=== PATIENT | male | born 1950 | race Caucasian/White ===

== ENCOUNTER → 2017-05-19 | Outpatient (CLI) | payer MEDICARE ==
[~2017-05-19] MED LIST: AMLO10TA2 PO; SIMV10TA2 PO; VITA100067 PO
[2017-05-19 10:13] LABS: BASO # 0.1 10^3/uL (0.0-0.2); BASO % 1.3 % (0.0-1.0); EOS # 0.4 10^3/uL (0.0-0.50); EOS % 6.6 % (0.0-3.0); IMMATURE GRANULOCYTE % 0.3 % (0-0); LYMPH % 31.9 % (24.0-44.0); MEAN CORPUSCULAR HEMOGLOBIN 33.5 pg (27.0-33.0); MEAN CORPUSCULAR HGB CONC 33.1 g/dl (32.0-36.5); MEAN CORPUSCULAR VOLUME 101.1 fl (80.0-96.0); MONO # 0.8 10^3/uL (0.0-0.8); NEUTROPHILS % 47.9 % (36.0-66.0); PLATELET COUNT, AUTOMATED 236 10^3/uL (150-450); RED CELL DISTRIBUTION WIDTH 12.1 % (11.5-14.5); WHITE BLOOD COUNT 6.2 10^3/uL (4.0-10.0)
[2017-05-19 10:37] LABS: ALBUMIN 3.9 GM/DL (3.2-5.2); ALKALINE PHOSPHATASE 32 U/L (45-117); ALT/SGPT 27 U/L (12-78); ANION GAP 9 MEQ/L (8-16); AST/SGOT 19 U/L (15-37); BILIRUBIN,TOTAL 0.8 MG/DL (0.2-1.0); BLOOD UREA NITROGEN 16 MG/DL (7-18); CALCIUM LEVEL 8.2 MG/DL (8.8-10.2); CARBON DIOXIDE LEVEL 28 MEQ/L (21-32); CHLORIDE LEVEL 103 MEQ/L (98-107); CHOLESTEROL LEVEL 215 MG/DL (<200); GLOMERULAR FILTRATION RATE > 60.0 (>49); GLUCOSE, FASTING 97 MG/DL (80-110); POTASSIUM SERUM 4.4 MEQ/L (3.5-5.1); SODIUM LEVEL 140 MEQ/L (136-145); TOTAL PROTEIN 6.5 GM/DL (6.4-8.2); TRIGLYCERIDES LEVEL 77 MG/DL (<150)
== END ==
LOC: M WUC 08:12
PROVIDERS: ATTEND Emergency Medicine
DX: E78.2 Mixed hyperlipidemia (principal); I10 Essential (primary) hypertension

== ENCOUNTER 2017-06-19 07:51 | Day surgery (SDC) | payer MEDICARE ==
[~2017-06-19] VITALS: Ht 172.7 cm; Wt 73.9 kg
[2017-06-19] MEDS ORDERED: LR 1,000 ML IV SCH ×2 (08:00→12:45)
[2017-06-19] MEDS ORDERED: ceFAZolin 2 GM/D5W 50 ML IV BAG (J0690) As Ordered ONE (09:18)
[2017-06-19] MEDS ORDERED: PROPOFOL 200 MG/20 ML VIAL As Ordered ONE ×2 (09:52→11:36)
[2017-06-19] MEDS ORDERED: MIDAZOLAM INJ 2 MG/2 ML VIAL (J2250) As Ordered ONE (09:52)
[2017-06-19] MEDS ORDERED: LIDOCAINE 2% INJ 100 MG/5 ML SDV (FOR ANES.) As Ordered ONE (09:52)
[2017-06-19] MEDS ORDERED: fentaNYL 100 MCG/2 ML INJECTION (J3010) As Ordered ONE (09:52)
[2017-06-19] MEDS ORDERED: BUPIVACAINE HCL 0.5% 30 ML VIAL As Ordered ONE (10:06)
[2017-06-19] MEDS ORDERED: NEOSPORIN GU IRRIG 20 ML VIAL As Ordered ONE (10:06)
[2017-06-19] MEDS ORDERED: BACITRACIN PWD 50,000 UNITS VIAL As Ordered ONE (10:06)
[2017-06-19] MEDS ORDERED: dexameTHASONE 4 MG/ML 1ML VIAL (J1100) As Ordered ONE (10:06)
[2017-06-19] MEDS ORDERED: LIDOCAINE 2% MDV 20 ML VIAL As Ordered ONE (10:06)
[2017-06-19] MEDS ORDERED: fentaNYL 100 MCG/2 ML INJECTION (J3010) IV PRN (12:45)
[2017-06-19] MEDS ORDERED: ONDANSETRON 4MG/2ML VIAL (J2405) IV PRN (12:45)
[2017-06-19] MEDS ORDERED: PERCOCET 5MG/325MG TAB PO PRN (12:45)
[2017-06-19] MEDS ORDERED: HYDROmorphone HCL 1 MG/ML SYRINGE (J1170) IV PRN (12:45)
--- NOTE | 2017-06-19 13:33 | REP ---
LEFT FOOT: Three views of the left foot performed in a portable fashion. Surgical defects are seen in the distal aspect of the first and fifth metatarsals fixed by a metallic screw at both locations. Surgical defect at the first proximal phalanx is fixed with a metallic surgical screw. A small screw is also seen in the head of the second metatarsal. There is a pin extending through the phalanges of the second digit, into the head of the second metatarsal. The structures are well aligned. Signed by Martell Robertson MD 06/19/2017 04:55 P
[2017-06-19 14:00] VITALS: BP 164/86
--- NOTE | 2017-06-19 18:22 | RO ---
DATE OF PROCEDURE: 06/19/2017 PREPROCEDURE DIAGNOSIS: Hallux valgus metatarsus primus varus deformity left foot, cross over second toe deformity second toe left foot, long second metatarsal left foot, Tailor's bunion deformity left foot. POSTPROCEDURE DIAGNOSIS: Hallux valgus metatarsus primus varus deformity left foot, cross over second toe deformity second toe left foot, long second metatarsal left foot, Tailor's bunion deformity left foot. PROCEDURE: 1. Tavia and Raul bunionectomy with internal screw fixation 3.0 x 22 and 3.0 x 18 left foot. 2. Proximal interphalangeal joint fusion with external wire fixation 0.045 times one left foot. 3. Shortening second metatarsal osteotomy with internal screw fixation left foot. 4. Metatarsophalangeal joint capsulotomy with extensor tendon lengthening second toe left foot. 5. Tailor's bunionectomy with distal V osteotomy, internal screw fixation 2.5 mm x 18 mm x 1 left foot. SURGEON: Dr. Arun Santos DPM PHARMACY SALESPERSON: None. ANESTHESIA: Local MAC. IRRIGATION: Dilute bacitracin, neomycin and polymyxin B solution. HEMOSTASIS: Ankle pneumatic tourniquet at 225 mmHg for 114 minutes. HARDWARE UTILIZED: Ashby Dart-Fire 3.0 x 22, 3.0 x 18, 2.5 x 14 and a 2.5 x 18 left foot. DESCRIPTION OF PROCEDURE: On 06/19/2017, this 67-year-old male was taken from his hospital room to the operating room and placed on the operating table in the supine position. Following the induction of intravenous (IV) sedation and local and regional anesthesia, the left lower extremity was prepped and draped in the usual aseptic manner. Attention was directed to the patient's left foot where the following procedure was performed: TAVIA AND RAUL OSTEOTOMY WITH INTERNAL SCREW FIXATION LEFT FOOT: Attention was directed to the patient's left foot. There was noted to be a severe bunion deformity of the left foot. At this time, an 8 cm incision was placed over the first metatarsophalangeal joint medial to the extensor tendon. The incision was deepened through the subcutaneous tissues and all coursing venous tributaries were identified, underscored, clamped, cut, ligated and electrocoagulated as necessary. A linear capsulotomy was performed in the same as the original skin incision. The capsular and periosteal structure was then dissected free in one continuous layer dorsally, medially and laterally, thus creating a capsular periosteal-type envelope. This delivered in view the hypertrophied medial eminence of the first metatarsal, which was osteotomized from distal to proximal, through and through, exiting medial to the sesamoidal groove. Attention was then directed into the first intermetatarsal space where dissection was carried down to the level of the fibular sesamoid where the conjoin tendon was sharply dissected free from the fibular sesamoid. Attention was directed to the medial surface of the first metatarsal where a V-shaped osteotomy was performed with a long plantar and short dorsal wing. Upon creation of this osteotomy, capital fragment was transposed approximately 30-40% of the width of the shaft of the first metatarsal and fixated with a 3.0 x 22 mm cannulated compression screw. Significant interphalangeal deformity was noted; therefore, dissection was carried over the level of the proximal phalanx. A pivot hole was then placed on the proximal lateral aspect of the proximal phalanx, and a wedge osteotomy was placed obliquely, exiting proximal to the interphalangeal joint along the medial condyle. A wedge measuring approximately 5 mm was removed reducing the interphalangeal deformity. Bone clamp was utilized to reduce the osteotomy where a 3.0 x 18 mm compression screw was placed across the osteotomy giving stable fixation. This screw was placed from a proximal medial to distal lateral orientation. The wound was flushed with copious amounts of dilute bacitracin, neomycin and polymyxin B solution. Capsular structures were coapted and maintained utilizing #2-0 Monocryl in a simple interrupted and horizontal mattress type fashion. Subcutaneous tissues were coapted and maintained utilizing #4-0 Monocryl in a simple interrupted type fashion. Skin incision was coapted and maintained utilizing #4-0 Prolene in a simple interrupted and horizontal mattress type fashion. Attention was then directed to the patient's second toe where the following procedure was performed: PROXIMAL INTERPHALANGEAL JOINT ARTHROPLASTY SECOND TOE WITH EXTERNAL WIRE FIXATION 0.045 TIMES ONE SECOND TOE LEFT FOOT: Attention was directed to the patient's second toe where two transverse semi-elliptical incisions were placed over the proximal interphalangeal joint and this wedge of skin was removed. The extensor tendon was visualized. It was freed from the proximal phalanx and a Z-plasty tendon lengthening was then performed on the distal margin of the extensor tendon. The medial and lateral collateral ligaments were then incised to expose the proximal interphalangeal joint. Utilizing a power saw, an osteotomy was performed to the level of the anatomical neck of the proximal phalanx from dorsal to plantar, medial to lateral, through and through. The base of the proximal phalanx had the cartilage osteotomized from dorsal to plantar, through and through. The wound was flushed with copious amounts of dilute bacitracin, neomycin and polymyxin B solution. Attention was then directed to the second metatarsal where the following procedure was performed: SHORTENING SECOND METATARSAL OSTEOTOMY WITH INTERNAL SCREW FIXATION, 2.5 X 14 mm LEFT FOOT: An incision was then placed in the second interspace measuring approximately 3 cm in length. Dissection was then carried down and the skin was retracted in a medial direction exposing the proximal interphalangeal joint where a dorsal capsulotomy was performed. Care was taken to release the contracted medial structures on the second metatarsophalangeal joint. Then, from the incision used for the second toe and the incision in the second interspace, care was taken to freely release the extensor tendon and bring it into the proximal wound. Periosteal incision was then placed over the second metatarsal and a Leilani osteotomy was performed. Upon creation of this osteotomy, the capital fragment was transposed approximately 3-4 mm proximal and 2-3 mm in a medial direction. This was fixated with a 2.5 x 14 mm compression screw. The osteotomy was noted to be stable in all three cardinal planes. The dorsal spike was then rongeured smooth and rasped with a handheld rasp. The wound was flushed with copious amounts of dilute bacitracin, neomycin and polymyxin B solution. The lateral side of the second toe was then held in a straight position and utilizing #2-0 Monocryl, the lateral capsule was wreathed to bring the toe into a straight anatomic position. K-wire was then driven through the middle and distal phalanxes and retrograded into the proximal phalanx. The toe was held in a slightly plantar flexed and lateral position and the K-wire crossed the osteotomy. The wire was then bent, cut and a protective cap was placed over the distal end. The wound was flushed with copious amounts of dilute bacitracin, neomycin and polymyxin B solution. Attention was directed towards closure where the extensor tendon was coapted and maintained with #4-0 braided nylon loop suture in a four-stranded core repair, Humphries repair. The subcutaneous tissues were coapted and maintained utilizing #4-0 Monocryl in a simple interrupted type fashion. The skin incision was coapted and maintained utilizing #4-0 Prolene in a simple interrupted and horizontal mattress type fashion over the second metatarsal and second toe. Attention was then directed to the Tailor's bunion deformity where the following procedure was performed: TAILOR'S BUNIONECTOMY WITH DISTAL V OSTEOTOMY, INTERNAL SCREW FIXATION, LEFT FOOT: Attention was directed to the patient's left foot where a lateral incision was placed over the fifth metatarsophalangeal joint. The incision was deepened through subcutaneous tissues and all coursing venous tributaries were identified, underscored, clamped, cut, ligated and electrocoagulated as necessary. This delivered into view the hypertrophied lateral eminence of the fifth metatarsal, which was osteotomized from distal to proximal, through and through. A V-shaped osteotomy was then performed in the distal metaphysis of the fifth metatarsal with a long plantar and short dorsal wing and a capital fragment was transposed 30-40% of the width of the shaft of the fifth metatarsal and fixated with a 2.5 x 18 mm cancellous compression screw. The osteotomy was noted to be stable in all three cardinal planes. The redundant cortical spike was osteotomized from dorsal to plantar, through and through and the lateral surface was rasped to a smooth contour. The wound was flushed with copious amounts of dilute bacitracin, neomycin and polymyxin B solution. Attention was directed towards closure where the capsular structure was coapted and maintained utilizing #2-0 Monocryl in a simple interrupted type fashion. The subcutaneous tissues were coapted and maintained utilizing #4-0 Monocryl in a simple interrupted type fashion. Skin incision was coapted and maintained utilizing #4-0 Prolene in a simple interrupted and horizontal mattress type fashion. Attention was then directed towards bandaging where a sterile compressive bandage was applied consisting of Adaptic, 4 x 4's, 4 x 4 splints, Rene, Kerlix and Coban. The ankle pneumatic tourniquet was rapidly deflated and instantaneous capillary filling time was noted in digits 1 through 5 of the patient's left foot. The patient having apparently tolerated the surgical procedure well was taken from the operating room (OR) to the recovery room, vital signs stable, patient afebrile, further monitoring by the anesthesia department. All surgical specimens removed during the operative procedure were sent to Pathology for gross and microscopic examination. Postoperative instructions given upon discharge.
== END 2017-06-19 14:33 | disposition home or self-care (01) ==
LOC: M SDC 07:51
PROVIDERS: ATTEND Podiatrist
DX: M21.621 Bunionette of right foot (principal); M20.42 Other hammer toe(s) (acquired), left foot; M20.41 Other hammer toe(s) (acquired), right foot; M79.672 Pain in left foot; M21.622 Bunionette of left foot; M20.11 Hallux valgus (acquired), right foot; I10 Essential (primary) hypertension; Z79.899 Other long term (current) drug therapy; E78.5 Hyperlipidemia, unspecified
CPT/HCPCS: 28110; 28270; 28285; 28296; 28298; 28308; 73630; 88300; 97116; C1713; J0690; J1100; J2250; J3010

== ENCOUNTER → 2017-10-31 | Outpatient (CLI) | payer MEDICARE ==
[2017-10-31 14:31] LABS: BASO # 0.1 10^3/uL (0.0-0.2); BASO % 1.3 % (0.0-1.0); EOS # 0.5 10^3/uL (0.0-0.50); EOS % 8.8 % (0.0-3.0); HEMATOCRIT 42.1 % (42.0-52.0); HEMOGLOBIN 14.1 g/dl (13.5-17.5); IMMATURE GRANULOCYTE % 0.2 % (0-3.0); LYMPH # 1.6 10^3/uL (1.5-4.5); MEAN CORPUSCULAR HGB CONC 33.5 g/dl (32.0-36.5); MEAN CORPUSCULAR VOLUME 98.6 fl (80.0-96.0); MONO # 0.7 10^3/uL (0.0-0.8); MONO % 12.9 % (0.0-5.0); NEUTROPHILS # 2.7 10^3/uL (1.8-7.7); NEUTROPHILS % 48.8 % (36.0-66.0); PLATELET COUNT, AUTOMATED 240 10^3/uL (150-450); RED BLOOD COUNT 4.27 10^6/uL (4.30-6.10); RED CELL DISTRIBUTION WIDTH 12.3 % (11.5-14.5); WHITE BLOOD COUNT 5.6 10^3/uL (4.0-10.0)
[2017-10-31 14:42] LABS: ALBUMIN 3.9 GM/DL (3.2-5.2); ALKALINE PHOSPHATASE 37 U/L (45-117); ALT/SGPT 28 U/L (12-78); ANION GAP 6 MEQ/L (8-16); AST/SGOT 18 U/L (7-37); BILIRUBIN,TOTAL 0.7 MG/DL (0.2-1.0); BLOOD UREA NITROGEN 22 MG/DL (7-18); CARBON DIOXIDE LEVEL 28 MEQ/L (21-32); CHLORIDE LEVEL 106 MEQ/L (98-107); CREATININE FOR GFR 0.88 MG/DL (0.70-1.30); GLOMERULAR FILTRATION RATE > 60.0 (>49); GLUCOSE, FASTING 91 MG/DL (70-100); POTASSIUM SERUM 4.5 MEQ/L (3.5-5.1); SODIUM LEVEL 140 MEQ/L (136-145); TOTAL PROTEIN 6.5 GM/DL (6.4-8.2)
== END ==
LOC: M WUC 08:34
DX: Z01.818 Encounter for other preprocedural examination (principal); M20.11 Hallux valgus (acquired), right foot
CPT/HCPCS: 80053

== ENCOUNTER 2017-11-07 07:00 | Day surgery (SDC) | payer MEDICARE ==
[~2017-11-07 07:00] MED LIST changes: -AMLO10TA2 PO; +LIDOCAINE 2% INJ 100 MG/5 ML SDV (FOR ANES.) As Ordered; +MIDAZOLAM INJ 2 MG/2 ML VIAL (J2250) As Ordered; +PROPOFOL 200 MG/20 ML VIAL As Ordered; +ROCURONIUM BROMIDE 50 MG/5 ML VIAL As Ordered; -SIMV10TA2 PO; -VITA100067 PO; +fentaNYL 100 MCG/2 ML INJECTION (J3010) As Ordered
[2017-11-07] MEDS: LR 1,000 ML IV (07:50)
[2017-11-07] MEDS: LIDOCAINE 2% MDV 20 ML VIAL As Ordered (08:33)
[2017-11-07] MEDS: BUPIVACAINE HCL 0.5% 30 ML VIAL As Ordered (08:33)
[2017-11-07] MEDS: NEOSPORIN GU IRRIG 20 ML VIAL As Ordered (08:55)
[2017-11-07] MEDS: BACITRACIN PWD 50,000 UNITS VIAL As Ordered (08:56)
[2017-11-07] MEDS ORDERED: PROPOFOL 200 MG/20 ML VIAL As Ordered ×3 (09:13→10:39)
[2017-11-07] MEDS ORDERED: ONDANSETRON 4MG/2ML VIAL (J2405) As Ordered (09:20)
[2017-11-07] MEDS: dexameTHASONE 4 MG/ML 1ML VIAL (J1100) As Ordered (10:29)
== END 2017-11-07 13:00 | disposition home or self-care (01) ==
LOC: M SDC 07:00
DX: M20.11 Hallux valgus (acquired), right foot (principal); M21.611 Bunion of right foot; M20.41 Other hammer toe(s) (acquired), right foot; I10 Essential (primary) hypertension; E78.5 Hyperlipidemia, unspecified; Z88.7 Allergy status to serum and vaccine; Z79.899 Other long term (current) drug therapy
CPT/HCPCS: 28296

== ENCOUNTER → 2017-12-22 | Outpatient (CLI) | payer MEDICARE | LOC: M RAD 12:04 | DX: M79.604 Pain in right leg (principal) | CPT/HCPCS: 93971 ==

== ENCOUNTER → 2019-09-10 | Outpatient (CLI) | payer MEDICARE ==
[~2019-09-10] MED LIST changes: +AMLO10TA5 PO; -LIDOCAINE 2% INJ 100 MG/5 ML SDV (FOR ANES.) As Ordered; -MIDAZOLAM INJ 2 MG/2 ML VIAL (J2250) As Ordered; -PROPOFOL 200 MG/20 ML VIAL As Ordered; -ROCURONIUM BROMIDE 50 MG/5 ML VIAL As Ordered; +SIMV10TA21 PO; +VITA100067 PO; -fentaNYL 100 MCG/2 ML INJECTION (J3010) As Ordered
[2019-09-10 16:35] LABS: BASO # 0.1 10^3/uL (0.0-0.2); EOS # 0.3 10^3/uL (0.0-0.5); EOS % 4.3 % (0.0-3.0); HEMATOCRIT 43.6 % (42.0-52.0); HEMOGLOBIN 13.9 g/dl (13.5-17.5); LYMPH # 1.7 10^3/uL (1.5-5.0); MEAN CORPUSCULAR HGB CONC 31.9 g/dl (32.0-36.5); MEAN CORPUSCULAR VOLUME 100.5 fl (80.0-96.0); MONO # 0.7 10^3/uL (0.0-0.8); MONO % 11.2 % (0.0-5.0); NEUTROPHILS # 3.3 10^3/uL (1.5-8.5); NEUTROPHILS % 55.3 % (36.0-66.0); PLATELET COUNT, AUTOMATED 250 10^3/uL (150-450); RED BLOOD COUNT 4.34 10^6/uL (4.30-6.10)
[2019-09-10 16:41] LABS: ALBUMIN 3.9 GM/DL (3.2-5.2); ALT/SGPT 31 U/L (12-78); BILIRUBIN,TOTAL 0.9 MG/DL (0.2-1.0); BLOOD UREA NITROGEN 16 MG/DL (7-18); CALCIUM LEVEL 8.5 MG/DL (8.8-10.2); CARBON DIOXIDE LEVEL 27 MEQ/L (21-32); CHLORIDE LEVEL 107 MEQ/L (98-107); CHOLESTEROL LEVEL 212 MG/DL (<200); CHOLESTEROL RISK RATIO 3.312 (<5); CREATININE FOR GFR 0.82 MG/DL (0.70-1.30); GLOMERULAR FILTRATION RATE > 60.0 (>49); GLUCOSE, FASTING 85 MG/DL (70-100); HDL CHOLESTEROL 64 MG/DL (>40); LDL CHOLESTEROL 131 MG/DL (<100); NON-HDL-C 148 MG/DL; POTASSIUM SERUM 4.1 MEQ/L (3.5-5.1); SODIUM LEVEL 140 MEQ/L (136-145); TOTAL PROTEIN 6.6 GM/DL (6.4-8.2); TRIGLYCERIDES LEVEL 85 MG/DL (<150)
== END ==
LOC: M WUC 11:22
PROVIDERS: ATTEND Family Medicine
DX: Z00.00 Encounter for general adult medical examination without abnormal findings (principal); E78.2 Mixed hyperlipidemia; I10 Essential (primary) hypertension

== ENCOUNTER → 2020-01-28 | Outpatient (CLI) | payer MEDICARE ==
--- NOTE | 2020-01-28 08:54 | REP ---
Chest x-ray: Two views. History: Shortness of breath. Comparison study: June 09, 2017. Findings: The lungs are well inflated and clear. Heart is not enlarged. The aorta is tortuous. Pleural angles are sharp. Pulmonary vasculature is not increased. Impression: No active disease. Electronically Signed by Carlitos Jama MD 01/28/2020 08:46 A
[2020-01-28 09:48] LABS: APPEARANCE, URINE CLEAR (CLEAR); BACTERIA, URINE AUTO NEGATIVE (NEGATIVE); BILIRUBIN, URINE AUTO NEGATIVE (NEGATIVE); BLOOD, URINE BLOOD NEGATIVE (NEGATIVE); COLOR, URINE STRAW (YELLOW); GLUCOSE, URINE (UA) AUTO NEGATIVE (NEGATIVE); KETONE, URINE AUTO NEGATIVE (NEGATIVE); LEUKOCYTE ESTERASE, URINE AUTO NEGATIVE (NEGATIVE); NITRITE, URINE AUTO NEGATIVE (NEGATIVE); PROTEIN, URINE AUTO NEGATIVE (NEGATIVE); RBC, URINE AUTO 1 /HPF (0-3); SPECIFIC GRAVITY URINE AUTO 1.014 (1.002-1.035); SQUAMOUS EPITHELIAL CELL UR AU 0 /HPF (0-6); UROBILINOGEN, URINE AUTO 0.2 mg/dL (0.0-2.0); WBC, URINE AUTO 0 /HPF (0-3)
[2020-01-28 09:53] LABS: BASO # 0.1 10^3/uL (0.0-0.2); BASO % 1.1 % (0.0-1.0); EOS # 0.3 10^3/uL (0.0-0.5); EOS % 6.1 % (0.0-3.0); HEMATOCRIT 45.5 % (42.0-52.0); HEMOGLOBIN 14.8 g/dl (13.5-17.5); LYMPH # 1.6 10^3/uL (1.5-5.0); LYMPH % 29.8 % (24.0-44.0); MEAN CORPUSCULAR HEMOGLOBIN 32.5 pg (27.0-33.0); MEAN CORPUSCULAR HGB CONC 32.5 g/dl (32.0-36.5); MONO # 0.7 10^3/uL (0.0-0.8); MONO % 12.3 % (0.0-5.0); NEUTROPHILS # 2.7 10^3/uL (1.5-8.5); NEUTROPHILS % 50.3 % (36.0-66.0); PLATELET COUNT, AUTOMATED 243 10^3/uL (150-450); RED BLOOD COUNT 4.55 10^6/uL (4.30-6.10); WHITE BLOOD COUNT 5.4 10^3/uL (4.0-10.0)
[2020-01-28 10:24] LABS: ALBUMIN 3.9 GM/DL (3.2-5.2); ALT/SGPT 27 U/L (12-78); BILIRUBIN,TOTAL 0.8 MG/DL (0.2-1.0); BLOOD UREA NITROGEN 20 MG/DL (7-18); CALCIUM LEVEL 8.9 MG/DL (8.8-10.2); CARBON DIOXIDE LEVEL 27 MEQ/L (21-32); CHLORIDE LEVEL 106 MEQ/L (98-107); CHOLESTEROL LEVEL 216 MG/DL (<200); CREATININE FOR GFR 0.99 MG/DL (0.70-1.30); FREE T4 1.21 NG/DL (0.76-1.46); GLOMERULAR FILTRATION RATE > 60.0 (>49); GLUCOSE, FASTING 88 MG/DL (70-100); HDL CHOLESTEROL 54 MG/DL (>40); LDL CHOLESTEROL 141 MG/DL (<100); NON-HDL-C 162 MG/DL; POTASSIUM SERUM 4.3 MEQ/L (3.5-5.1); SODIUM LEVEL 140 MEQ/L (136-145); TOTAL PROTEIN 6.8 GM/DL (6.4-8.2); TRIGLYCERIDES LEVEL 105 MG/DL (<150)
== END ==
LOC: M WUC 08:04
PROVIDERS: ATTEND Physician Assistant
DX: R06.02 Shortness of breath (principal); E78.5 Hyperlipidemia, unspecified; I10 Essential (primary) hypertension; Z12.5 Encounter for screening for malignant neoplasm of prostate
CPT/HCPCS: 36415; 71046; 80053; 80061; 81001; 84439; 84443; 85025; G0103

== ENCOUNTER → 2020-02-03 | Outpatient (CLI) | payer MEDICARE ==
--- NOTE | 2020-02-03 10:00 | REP ---
Clinical: Neck and shoulder pain. Technique: AP, lateral, flexion/extension, bilateral oblique and open mouth views of the cervical spine. Findings: Reversal of normal lordosis centered at C4-5 along with advanced multilevel degenerative disc osteophyte complexes. Findings include osteophytosis, endplate sclerosis, disc space narrowing, facet arthropathy and foraminal narrowing. Chronic stable anterolisthesis at the C3-4 level of approximately 5 mm noted. No obvious acute fracture / compression injury. Impression: Advanced multilevel degenerative spondylosis. Electronically Signed by Terrence Fatima MD 02/03/2020 09:53 A
--- NOTE | 2020-02-03 10:03 | REP ---
Clinical: Left shoulder pain. Technique: Internal rotation, external rotation, and Y view of the left shoulder. Findings: Subtle cortical irregularity at the acromioclavicular joint is appreciated along with mild blunting to the calcified glenoid rim. No acute fracture or dislocation. No obvious periarticular calcifications/loose bodies. Impression: Mild age-related degenerative changes. Findings appear relatively similar to 03/20/2010. Electronically Signed by Terrence Fatima MD 02/03/2020 09:55 A
== END ==
LOC: M CLY 09:11
PROVIDERS: ATTEND Physician Assistant
DX: M47.892 Other spondylosis, cervical region (principal); M19.012 Primary osteoarthritis, left shoulder; M54.2 Cervicalgia; M25.512 Pain in left shoulder

== ENCOUNTER → 2020-03-07 | Emergency (ER) | payer MEDICARE ==
[~2020-03-07] MED LIST changes: -AMLO10TA5 PO; +AMLO1TAB25 PO; +HYDROMORPHONE HCL 0.5 MG/ 0.5 ML SYRINGE (J1170 PER 1) ONE; +MORPHINE 4 MG/ML 1ML VIAL/SYRINGE (J2270) ONE; +ONDANSETRON 4MG/2ML VIAL ONE; +propofoL 200 MG/20 ML VIAL ONE
[2020-04-23 06:56] LABS: INR 1.04; PARTIAL THROMBOPLASTIN TIME 28.4 SECONDS (24.2-38.5); PROTHROMBIN TIME 13.9 SECONDS (12.5-14.3)
[2020-04-23 09:33] LABS: BASO # 0.1 10^3/uL (0.0-0.2); BASO % 0.7 % (0.0-1.0); EOS # 0.3 10^3/uL (0.0-0.5); EOS % 3.2 % (0.0-3.0); HEMATOCRIT 39.5 % (42.0-52.0); HEMOGLOBIN 13.3 g/dl (13.5-17.5); LYMPH # 1.3 10^3/uL (1.5-5.0); LYMPH % 14.1 % (24.0-44.0); MEAN CORPUSCULAR HEMOGLOBIN 32.7 pg (27.0-33.0); MEAN CORPUSCULAR HGB CONC 33.7 g/dl (32.0-36.5); MEAN CORPUSCULAR VOLUME 97.1 fl (80.0-96.0); MONO # 0.9 10^3/uL (0.0-0.8); MONO % 9.1 % (0.0-5.0); NEUTROPHILS # 6.8 10^3/uL (1.5-8.5); NEUTROPHILS % 72.5 % (36.0-66.0); PLATELET COUNT, AUTOMATED 232 10^3/uL (150-450); RED BLOOD COUNT 4.07 10^6/uL (4.30-6.10); WHITE BLOOD COUNT 9.4 10^3/uL (4.0-10.0)
--- NOTE | 2020-04-28 08:57 | REP ---
PORTABLE RIGHT SHOULDER X-RAY: SINGLE VIEW HISTORY: Post reduction. COMPARISON: No comparison imaging is available. FINDINGS: A portably obtained AP view of the right shoulder demonstrates normal alignment of the glenohumeral and acromioclavicular joints. No fracture or subluxation is apparent. Periarticular soft tissues are unremarkable. Monitoring electrode is seen. IMPRESSION: No fracture or subluxation seen. MTDD
[2020-05-21 14:47] LABS: ALBUMIN 3.7 GM/DL (3.2-5.2); ALT/SGPT 24 U/L (12-78); BILIRUBIN,DIRECT 0.1 MG/DL (0.0-0.2); BILIRUBIN,TOTAL 0.5 MG/DL (0.2-1.0); BLOOD UREA NITROGEN 19 MG/DL (7-18); CALCIUM LEVEL 8.4 MG/DL (8.8-10.2); CARBON DIOXIDE LEVEL 27 MEQ/L (21-32); CHLORIDE LEVEL 109 MEQ/L (98-107); CREATININE FOR GFR 0.98 MG/DL (0.70-1.30); GLOMERULAR FILTRATION RATE > 60.0 (>49); GLUCOSE, FASTING 121 MG/DL (70-100); POTASSIUM SERUM 3.6 MEQ/L (3.5-5.1); SODIUM LEVEL 142 MEQ/L (136-145); TOTAL PROTEIN 6.1 GM/DL (6.4-8.2)
== END | disposition home or self-care (01) ==
LOC: M ED 15:56
DX: S43.004A Unspecified dislocation of right shoulder joint, initial encounter (principal); W17.89XA Other fall from one level to another, initial encounter; Y99.0 Civilian activity done for income or pay; I10 Essential (primary) hypertension; Z79.899 Other long term (current) drug therapy; Z88.7 Allergy status to serum and vaccine
CPT/HCPCS: 23650; 70450; 72125; 73020; 73030; 73060; 80048; 80076; 85025; 85610; 85730; 86850; 86900; 86901; 96374; 96375; 96376; 99284; J1170; J2270; J2405

== ENCOUNTER → 2020-03-23 | Outpatient (CLI) | payer MEDICARE ==
[~2020-03-23] MED LIST changes: -HYDROMORPHONE HCL 0.5 MG/ 0.5 ML SYRINGE (J1170 PER 1) ONE; -MORPHINE 4 MG/ML 1ML VIAL/SYRINGE (J2270) ONE; -ONDANSETRON 4MG/2ML VIAL ONE; -propofoL 200 MG/20 ML VIAL ONE
== END ==
LOC: M LABSMTC 09:53
PROVIDERS: ATTEND Anesthesiology
DX: Z53.9 Procedure and treatment not carried out, unspecified reason (principal)

== ENCOUNTER 2020-03-28 12:36 | Day surgery (SDC) | payer MEDICARE ==
[~2020-03-28] VITALS: Ht 172.7 cm; Wt 78.0 kg
[2020-03-28] MEDS ORDERED: dexameTHASONE 10MG/1ML VIAL PRES.FREE (J1100 PER 1MG) ONE (12:37)
[2020-03-28] MEDS ORDERED: LIDOCAINE 1% MDV 20ML VIAL ONE (12:37)
[2020-03-28] MEDS ORDERED: ROPIvacaine 0.5% 30ML INJECTION (J2795 PER 1MG) ONE (12:37)
[2020-03-28] MEDS ORDERED: fentaNYL 100 MCG/2 ML INJECTION (J3010) As Ordered ONE ×3 (13:22→14:00)
[2020-03-28] MEDS ORDERED: MIDAZOLAM INJ 2MG/2ML VIAL (J2250 PER 1MG) As Ordered ONE ×2 (13:22→13:53)
[2020-03-28] MEDS ORDERED: ceFAZolin 2 GM/D5W 50 ML IV BAG (J0690 PER 500MG) As Ordered ONE (13:38)
[2020-03-28] MEDS ORDERED: propofoL 200 MG/20 ML VIAL As Ordered ONE ×2 (13:53→14:00)
[2020-03-28] MEDS ORDERED: LIDOCAINE 2% 100MG/5ML SDV (FOR ANES.) As Ordered ONE ×2 (13:53→14:04)
[2020-03-28] MEDS ORDERED: ROCURONIUM BROMIDE 50 MG/5 ML VIAL As Ordered ONE ×3 (13:53→16:37)
[2020-03-28] MEDS ORDERED: ONDANSETRON 4MG/2ML VIAL As Ordered ONE ×2 (13:53→14:53)
[2020-03-28] MEDS ORDERED: METOCLOPRAMIDE INJ 10MG/2ML VIAL (J2765 PER 1) As Ordered ONE (13:53)
[2020-03-28] MEDS ORDERED: EPINEPHrine 1MG/ML INJ 30ML MD-VIAL As Ordered ONE (13:58)
[2020-03-28] MEDS ORDERED: ceFAZolin SOD 2 GM in IV 1 EA IV ONE (14:45)
[2020-03-28] MEDS ORDERED: LR 1,000 ML IV ONE (14:45)
[2020-03-28] MEDS ORDERED: ePHEDrine SULFATE 25 MG/5 ML(5MG/ML) SYRINGE As Ordered ONE (14:53)
[2020-03-28] MEDS ORDERED: SUGAMMADEX SODIUM 500 MG/5 ML VIAL (BRIDION) As Ordered ONE (14:53)
[2020-03-28] MEDS ORDERED: MIDAZOLAM INJ 2MG/2ML VIAL (J2250 PER 1MG) IV ONE (15:00)
[2020-03-28] MEDS ORDERED: fentaNYL 100 MCG/2 ML INJECTION (J3010) IV ONE (15:00)
[2020-03-28] MEDS ORDERED: ACETAMINOPHEN 1000MG 100ML IV BTL (OFIRMEV) (J0131 PER 10MG) As Ordered ONE (15:41)
[2020-03-28] MEDS ORDERED: HYDROmorphone HCL 2 MG/ML 1ML VIAL (J1170) As Ordered ONE (17:02)
[2020-03-28] MEDS ORDERED: ONDANSETRON 4MG/2ML VIAL IV PRN (19:30)
[2020-03-28] MEDS ORDERED: oxyCODONE 5MG TAB PO PRN (19:30)
[2020-03-28] MEDS ORDERED: HYDROMORPHONE HCL 0.5 MG/ 0.5 ML SYRINGE (J1170 PER 1) IV PRN (19:30)
[2020-03-28] MEDS ORDERED: LR 1,000 ML IV SCH ×2 (19:30)
[2020-03-28] MEDS ORDERED: fentaNYL 100 MCG/2 ML INJECTION (J3010) IV PRN (19:30)
[2020-03-28] MEDS ORDERED: MORPHINE 4 MG/ML 1ML VIAL/SYRINGE (J2270) IV PRN (19:45)
[2020-03-28] MEDS ORDERED: NORCO, ANEXSIA 5/325MG TABLET (HYDROcodone/ACETAMINOPHEN) PO PRN ×2 (19:45)
[2020-03-28 20:15] VITALS: BP 159/82
--- NOTE | 2020-04-17 11:56 | RO ---
DATE OF OPERATION: 03/28/2020 PREOPERATIVE DIAGNOSES: Right shoulder massive rotator cuff tear with subscapularis tear with a meso-acromion, status post dislocation. POSTOPERATIVE DIAGNOSES: Right shoulder massive rotator cuff tear with subscapularis tear with a meso-acromion, status post dislocation. PROCEDURES: 1. Right shoulder arthroscopic massive rotator cuff tear repair. 2. Right shoulder arthroscopic subscapularis tear. 3. Right shoulder arthroscopic biceps tenotomy. SURGEON: Morris Schaffer M.D. BOOK JACKET COVER MACHINE OPERATOR: Mr. Shyam Martinez. ANESTHESIA: Right interscalene nerve block with a general endotracheal tube anesthetic. COMPLICATIONS: None. FINDINGS: This was a massive tear making it very difficult, taking an extended amount of time. It took 3 hours of surgical standing time for me to do this procedure. The rotator cuff was essentially fully torn including the supraspinatus, the infraspinatus, and the teres minor were pulled off the humerus. In addition, the biceps tendon was significantly frayed and there was an upper border of subscapularis tear that had been retracted medially to a significant degree, requiring a significant amount of dissection anteriorly to free the stump of the tendon and able to bring it back for repair. DESCRIPTION OF PROCEDURE: Antibiotics were given intravenously preoperatively. After a successful right interscalene nerve block and then general endotracheal tube anesthetic was established, he was placed in a semi-beach chair position where the SPIDER shoulder springer was utilized. Then his right shoulder area was carefully prepped and draped in the usual sterile fashion. After appropriate time-out, routine diagnostic arthroscopy was performed of the glenohumeral joint from a posterior portal revealing the findings as noted above. A complete tear of the rotator cuff was noted. The biceps tendon was significantly frayed and partially torn. The upper border of the subscapularis was clearly retracted medially. Interestingly enough, there did not appear to be a significant Bankart lesion. Working around superiorly, there was basically a bare humeral head all the way posteriorly. The biceps tenotomy was thus performed. At this point, I then placed the scope. I then spent a great deal of time trying to dissect out the upper border of the subscapularis tendon, trying to find the stump of the tendon that had been pulled back. I went along the posterior surface of the subscapularis tendon. I also went superiorly all the way to the base of the coracoid process after releasing the coracohumeral ligament and traced the coracoid process in a curved fashion, down to identify the tip. This allowed me to eventually identify and find the upper border of the subscapularis tendon that was retracted medially. The stump of the tendon was actually folded underneath the coracohumeral ligament and the coracobrachialis tendon, anteriorly. I was actually able to tease this out of the scar tissue and basically it was a mop and a frayed tendon edge. The stump of the tendon was over on the lesser tuberosity. Bleeding points were coagulated throughout the surgery with an ablator wand. I then placed the scope in the subacromial space and performed a bursectomy. It was noteworthy that there was a large meso-acromion, thus the anterior aspect of the acromion was very hypermobile, so I was very careful to not disrupt this too much. I did dissect over near the AC joint, but elected not to perform a distal clavicle excision because it might destabilize the meso-acromion complex, as well, thus I had to work on a bit of a compromised space in the subacromial space because of this. I was able to perform a bursectomy and get hemostasis adequately with the ablator wand. I then moved my visualization portal from the more posterior portal to a more posterolateral portal by using a spinal needle and a switching stick technique. A lateral cannula was established as well. I was able to move my visualization portal over into the lateral cannula to get better appreciation of the anatomy of this very large complete tear. The robust rotator cuff tendon was actually more on the articular side and retracted. There was a delaminated type tear, that is there was some rotator cuff and more of a bursal surface. A great deal of attention and time and patience was spent in trying to mobilize the robust, more articular-sided rotator cuff, focusing more on the external rotators, that is the teres minor and the infraspinatus tendon so I could hopefully improve his marked external rotation weakness by getting it reattached anatomically. I denuded the footprint of these tendons more on the posterior aspect of the humeral head and the lateral aspect. I used the ring curette and a shaver as well to make for a good bony bleeding, healing surface. I tried to mobilize as best as possible the tendons by using an elevator, the articular surface as well as the bursal surface of the rotator cuff. I went all the way over the coracohumeral ligament as I had done earlier in order to help mobilize as well the supraspinatus tendon. There was no comma tissue remaining at this point. I then focused on repairing the posterior aspect of the rotator cuff first. I used a 5.5 Bio-Corkscrew anchor, using a spinal needle to localize the trajectory of the placement of the anchor and placed it posterolaterally. Two limbs of one of the #2 FiberWire were passed in a horizontal mattress fashion and docked out anteriorly. The second suture was used as a simple stitch, as a rip-stop. I passed that in a simple fashion with a Scorpion passer and then tied it down securely. This brought the rotator cuff from posteriorly and medially back to its anatomic footprint. Thus, I placed a second anchor just more anterior to this in a similar fashion using a spinal needle to localize, used the punch, and then placed the 5.5 corkscrew suture anchor, and then again passed two limbs of one of the #2 FiberWire in a horizontal mattress fashion using the Scorpion suture passer. I then docked those ends of the suture out anteriorly. Then, I passed the other pair of sutures in a simple fashion as a rip-stop once again and secured it down to the anchor with a tier over using a [place] Slider Knot. Then, a third anchor was placed more medially and basically, it was mostly in the supraspinatus tendon. Again, a horizontal mattress inverted suture was passed with the Scorpion suture passer, followed by a simple suture as a rip-stop. I secured that back down. These three sets of horizontal mattress sutures were passed just through the very robust, true rotator cuff tendon that was on the articular surface. I took each individual limb and passed it once again through the actual superficial layer of the rotator cuff, such that when I do the lateral row of the whole complex, it would fold over itself, making a nice water-tight closure. Once I had done this individually with the Scorpion suture passer, I then focused on the lateral row fixation. The posterolateral row was placed first. I grabbed one limb from each pair of the six sutures and passed them out through the lateral cannula. I made the punch hole and then loaded the SwiveLock anchor and then advanced the SwiveLock anchor to make sure good tension on all limbs were providing a nice repair with good robust bone fixation. The limbs were cut short. I then grabbed the remaining three sutures from the three pairs of #2 FiberWire sutures, loaded them on another SwiveLock anchor more anterior and laterally. The punch was placed and then the anchor was inserted providing excellent repair of the rotator cuff. Photographs were taken to document this through the lateral cannula. I then turned my attention to the subscapularis tendon that had previously been mobilized. Through the anterior cannula that had been established for an anterior working portal, I used the MissingLINK suture passer to pass a horizontal mattress FiberTape and using a speed fix technique, I placed the anchor into the lesser tuberosity, the medial aspect of the bicipital groove, and then secured the upper border of the subscapularis tendon in this area. The sutures were cut short. The procedure was concluded at this point. Copiously irrigated the subacromial space and closed all of the arthroscopy portals, as well as the supplementary portals that were used to pass the anchors with interrupted nylon sutures. I covered the wounds with Adaptic dry sterile bulky dressing. An abductor brace was then applied while he was still under anesthesia. Then, he was awakened from general endotracheal anesthesia after having tolerated the procedure well, and then transferred to the recovery room in stable condition. There were no intraoperative complications. JULIO CESAR
== END 2020-03-28 20:18 | disposition home or self-care (01) ==
LOC: M SDC 12:36
PROVIDERS: ATTEND Orthopaedic Surgery
DX: M75.121 Complete rotator cuff tear or rupture of right shoulder, not specified as traumatic (principal); M25.511 Pain in right shoulder; I10 Essential (primary) hypertension; Z79.899 Other long term (current) drug therapy; Z88.7 Allergy status to serum and vaccine
CPT/HCPCS: 29823; 29827; 64415; C1713; J0131; J0690; J1100; J1170; J2250; J2405; J2765; J2795; J3010

== ENCOUNTER → 2021-02-21 | Outpatient (CLI) | payer MEDICARE ==
[~2021-02-21] MED LIST changes: +ASPI81TA26 PO; +D31000TA2 PO; +POTA99TA14 PO
== END ==
LOC: M LABSMTC 12:14
PROVIDERS: ATTEND Anesthesiology
DX: Z20.828 Contact with and (suspected) exposure to other viral communicable diseases (principal); Z11.59 Encounter for screening for other viral diseases

== ENCOUNTER 2021-02-26 10:55 | Day surgery (SDC) | payer MEDICARE ==
[~2021-02-26] VITALS: Ht 177.8 cm; Wt 78.0 kg
[~2021-02-26 10:55] MED LIST changes: +NS 1,000 ML IV SCH
[2021-02-26] MEDS ORDERED: propofoL 200 MG/20 ML VIAL As Ordered ONE (12:01)
[2021-02-26] MEDS ORDERED: LIDOCAINE 2% MDV 20ML VIAL As Ordered ONE (12:01)
--- NOTE | 2021-02-26 12:31 | ROOR ---
Patient Name: Arun Magana Procedure Date: 02/26/2021 12:09 PM Date of : 1950 Age: 70 Room: [facility] Gender: Male Note Status: Finalized Procedure: Colonoscopy Indications: High risk colon cancer surveillance: Personal history of colonic polyps Providers: Junior Montoya MD Referring MD: SANDIE Monaco [id number] Requesting Provider: Medicines: Monitored Anesthesia Care Complications: No immediate complications. Procedure: Pre-Anesthesia Assessment: - The heart rate, respiratory rate, oxygen saturations, blood pressure, adequacy of pulmonary ventilation, and response to care were monitored throughout the procedure. The Colonoscope was introduced through the anus and advanced to the terminal ileum, with identification of the appendiceal orifice and IC valve. The colonoscopy was performed without difficulty. The patient tolerated the procedure well. The quality of the bowel preparation was good. Findings: The perianal and digital rectal examinations were normal. A 5 mm polyp was found in the sigmoid colon. The polyp was sessile. The polyp was removed with a cold snare. Resection and retrieval were complete. The exam was otherwise without abnormality on direct and retroflexion views. A single small localized angioectasia without bleeding was found in the cecum. Impression: - One 5 mm polyp in the sigmoid colon, removed with a cold snare. Resected and retrieved. - A single small non-bleeding colonic angioectasia. - The examination was otherwise normal on direct and retroflexion views. Recommendation: - Await pathology results. - Telephone endoscopist for pathology results in 2 weeks. - If the pathology report reveals adenomatous tissue, then repeat the colonoscopy for surveillance in 5 years. Procedure Code(s): --- Professional --- 46814, Colonoscopy, flexible; with removal of tumor(s), polyp(s), or other lesion(s) by snare technique Diagnosis Code(s): --- Professional --- K55.20, Angiodysplasia of colon without hemorrhage K63.5, Polyp of colon Z86.010, Personal history of colonic polyps CPT copyright 2019 [employer]. All rights reserved. The codes documented in this report are preliminary and upon information systems project manager review may be revised to meet current compliance requirements. Junior Montoya MD Junior Montoya MD 02/26/2021 12:30:58 PM Electronically signed by Junior Montoya MD Number of Addenda: 0 Note Initiated On: 02/26/2021 12:09 PM Estimated Blood Loss: Estimated blood loss: none.
[2021-02-26 12:55] VITALS: BP 140/76
== END 2021-02-26 13:05 | disposition home or self-care (01) ==
LOC: M OPP 10:55
PROVIDERS: ATTEND Internal Medicine Gastroenterology
DX: Z12.11 Encounter for screening for malignant neoplasm of colon (principal); Z86.010 Personal history of colon polyps; K55.20 Angiodysplasia of colon without hemorrhage; K63.5 Polyp of colon; Z79.82 Long term (current) use of aspirin; Z79.899 Other long term (current) drug therapy; Z88.7 Allergy status to serum and vaccine

== ENCOUNTER → 2021-06-14 | Outpatient (REF) | payer MEDICARE ==
[~2021-06-14] MED LIST changes: -NS 1,000 ML IV SCH
[2021-06-14 16:51] LABS: BASO # 0.1 10^3/uL (0.0-0.2); BASO % 1.4 % (0.0-1.0); EOS # 0.3 10^3/uL (0.0-0.5); EOS % 4.9 % (0.0-3.0); HEMATOCRIT 43.7 % (42.0-52.0); HEMOGLOBIN 14.4 g/dl (13.5-17.5); LYMPH # 1.2 10^3/uL (1.5-5.0); LYMPH % 23.3 % (24.0-44.0); MEAN CORPUSCULAR HEMOGLOBIN 32.4 pg (27.0-33.0); MEAN CORPUSCULAR VOLUME 98.2 fl (80.0-96.0); MONO # 0.7 10^3/uL (0.0-0.8); MONO % 13.9 % (2.0-8.0); NEUTROPHILS # 2.9 10^3/uL (1.5-8.5); NEUTROPHILS % 56.1 % (36.0-66.0); PLATELET COUNT, AUTOMATED 257 10^3/uL (150-450); RED BLOOD COUNT 4.45 10^6/uL (4.30-6.10); WHITE BLOOD COUNT 5.1 10^3/uL (4.0-10.0)
[2021-06-14 17:00] LABS: ALT/SGPT 25 U/L (12-78); BILIRUBIN,TOTAL 0.6 MG/DL (0.2-1.0); BLOOD UREA NITROGEN 20 MG/DL (7-18); CALCIUM LEVEL 9.2 MG/DL (8.8-10.2); CARBON DIOXIDE LEVEL 28 MEQ/L (21-32); CHLORIDE LEVEL 109 MEQ/L (98-107); CHOLESTEROL LEVEL 254 MG/DL (<200); CREATININE FOR GFR 0.85 MG/DL (0.70-1.30); GLOMERULAR FILTRATION RATE > 60.0 (>42); GLUCOSE, FASTING 106 MG/DL (70-100); POTASSIUM SERUM 4.3 MEQ/L (3.5-5.1); SODIUM LEVEL 140 MEQ/L (136-145); TRIGLYCERIDES LEVEL 161 MG/DL (<150)
[2021-06-14 17:01] LABS: ALBUMIN 3.8 GM/DL (3.2-5.2); CHOLESTEROL RISK RATIO 5.183 (<5); HDL CHOLESTEROL 49 MG/DL (>40); LDL CHOLESTEROL 173 MG/DL (<100); NON-HDL-C 205 MG/DL; TOTAL PROTEIN 6.5 GM/DL (6.4-8.2)
== END ==
LOC: M SFHCCAPE 07:16
PROVIDERS: ATTEND Physician Assistant
DX: I10 Essential (primary) hypertension (principal)

== ENCOUNTER → 2021-06-18 | Outpatient (REF) | payer MEDICARE | LOC: M SFHCCAPE 09:24 | PROVIDERS: ATTEND Physician Assistant | DX: Z12.5 Encounter for screening for malignant neoplasm of prostate (principal) | CPT/HCPCS: 86617; G0103 ==

== ENCOUNTER → 2021-08-06 | Outpatient (CLI) | payer MEDICARE ==
--- NOTE | 2021-08-07 13:46 | REPVR ---
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 COMPARISON: CT Spine,cervical w/o contrast 03/07/2020 3:07 PM FINDINGS: Vertebrae: There is straightening of the cervical spine which could be secondary to positioning or muscle spasm. There is degenerative anterolisthesis of C3 on C4. There is chronic degenerative wedging of the C5 and C6 vertebral bodies. Otherwise,. The cervical vertebral bodies are normal in height, signal intensity and alignment.No acute fracture or dislocation is seen.The atlantoaxial articulation is normal. Spinal cord: The cervical spinal cord is normal in thickness and signal intensity.There is no cord compression or intramedullary signal abnormality. Spinal epidural space: There is no evidence for epidural mass or hemorrhage. C2-C3: No significant disc herniation. No significant spinal stenosis. There is bilateral uncovertebral hypertrophic changes.There is moderate left foraminal stenosis. C3-C4: There is a mild diffuse posterior bulge causing mild effacement of the thecal sac.There is bilateral uncovertebral hypertrophic changes. Moderate left and severe right facet arthropathy.There is no evidence of spinal canal narrowing. There is mild left foraminal stenosis. There is severe right foraminal stenosis. C4-C5: Small diffuse posterior herniation.There is bilateral uncovertebral hypertrophic changes. Mild right and severe left facet arthropathy.There is no evidence of spinal canal narrowing. There is mild right foraminal stenosis. There is severe left foraminal stenosis. There is compression on the left exiting nerve root. C5-C6: Markedly reduced in height and T2 signal indicating degeneration. Moderate degenerative endplate changes.There is a mild diffuse posterior bulge causing mild effacement of the thecal sac. There is diffuse endplate spurring.There is bilateral uncovertebral hypertrophic changes.The facet joints demonstrate moderate degenerative narrowing and sclerosis. There is mild spinal canal narrowing, with an AP canal dimension of 10 mm. There is severe bilateral foraminal stenosis. C6-C7: Markedly reduced in height and T2 signal indicating degeneration. Moderate degenerative endplate changes.There is a mild diffuse posterior bulge causing mild effacement of the thecal sac.There is bilateral uncovertebral hypertrophic changes.The facet joints demonstrate moderate degenerative narrowing and sclerosis. There is no evidence of spinal canal narrowing. There is severe bilateral foraminal stenosis. C7-T1: Markedly reduced in height and T2 signal indicating degeneration. Moderate degenerative endplate changes.There is a mild diffuse posterior bulge causing mild effacement of the thecal sac.There is bilateral uncovertebral hypertrophic changes.The facet joints demonstrate moderate degenerative narrowing and sclerosis. There is no evidence of spinal canal narrowing. There is moderate bilateral foraminal stenosis. Soft tissues: The prevertebral soft tissues appear normal. Brain: The visualized brain parenchyma is unremarkable. Vertebral arteries: Expected flow voids in the vertebral arteries. IMPRESSION: MRI of the cervical spine reveals multilevel degenerative spondylitic changes and degenerative disc disease as described above. Electronically signed by: Oscar Vega On 08/07/2021 13:45:32 PM
== END ==
LOC: M RAD 17:56
PROVIDERS: ATTEND Physician Assistant
DX: S13.140A Subluxation of C3/C4 cervical vertebrae, initial encounter (principal); S13.160A Subluxation of C5/C6 cervical vertebrae, initial encounter; Y92.89 Other specified places as the place of occurrence of the external cause; Y93.9 Activity, unspecified; Y99.9 Unspecified external cause status

== ENCOUNTER → 2022-05-22 | Outpatient (REF) | payer MEDICARE ==
[~2022-05-22] MED LIST changes: -D31000TA2 PO; +VITA100093 PO
[2022-05-22 18:43] LABS: BASO # 0.1 10^3/uL (0.0-0.2); BASO % 1.3 % (0.0-1.0); EOS # 0.3 10^3/uL (0.0-0.5); HEMATOCRIT 43.3 % (42.0-52.0); HEMOGLOBIN 14.3 g/dl (13.5-17.5); LYMPH # 1.4 10^3/uL (1.5-5.0); LYMPH % 27.1 % (24.0-44.0); MEAN CORPUSCULAR HEMOGLOBIN 32.4 pg (27.0-33.0); MEAN CORPUSCULAR VOLUME 98.2 fl (80.0-96.0); MONO # 0.6 10^3/uL (0.0-0.8); NEUTROPHILS # 2.8 10^3/uL (1.5-8.5); NEUTROPHILS % 54.2 % (36.0-66.0); PLATELET COUNT, AUTOMATED 248 10^3/uL (150-450); RED BLOOD COUNT 4.41 10^6/uL (4.30-6.10); WHITE BLOOD COUNT 5.2 10^3/uL (4.0-10.0)
[2022-05-22 19:40] LABS: ALBUMIN 3.9 GM/DL (3.2-5.2); ALT/SGPT 31 U/L (12-78); BILIRUBIN,TOTAL 0.8 MG/DL (0.2-1.0); BLOOD UREA NITROGEN 20 MG/DL (7-18); CALCIUM LEVEL 8.8 MG/DL (8.8-10.2); CARBON DIOXIDE LEVEL 26 MEQ/L (21-32); CHLORIDE LEVEL 107 MEQ/L (98-107); CHOLESTEROL LEVEL 226 MG/DL (<200); CREATININE FOR GFR 1.06 MG/DL (0.70-1.30); GLOMERULAR FILTRATION RATE > 60.0 (>42); GLUCOSE, FASTING 103 MG/DL (70-100); HDL CHOLESTEROL 59 MG/DL (>40); LDL CHOLESTEROL 145 MG/DL (<100); NON-HDL-C 167 MG/DL; POTASSIUM SERUM 4.4 MEQ/L (3.5-5.1); SODIUM LEVEL 138 MEQ/L (136-145); TOTAL PROTEIN 6.6 GM/DL (6.4-8.2); TRIGLYCERIDES LEVEL 108 MG/DL (<150)
[2022-05-22 19:41] LABS: TOTAL 25(OH) VITAMIN D 30.4 NG/ML (30.0-100.0)
== END ==
LOC: M SFHCCAPE 07:49
PROVIDERS: ATTEND Physician Assistant
DX: E78.5 Hyperlipidemia, unspecified (principal); Z12.5 Encounter for screening for malignant neoplasm of prostate; F10.10 Alcohol abuse, uncomplicated; Z79.899 Other long term (current) drug therapy

== ENCOUNTER → 2023-05-26 | Outpatient (REF) | payer MEDICARE ==
[2023-05-26 19:04] LABS: BASO # 0.1 10^3/uL (0.0-0.2); BASO % 1.3 % (0.0-1.0); EOS # 0.2 10^3/uL (0.0-0.5); EOS % 3.6 % (0.0-3.0); LYMPH # 1.6 10^3/uL (1.5-5.0); LYMPH % 29.3 % (24.0-44.0); MEAN CORPUSCULAR HEMOGLOBIN 32.8 pg (27.0-33.0); MEAN CORPUSCULAR HGB CONC 33.3 g/dl (32.0-36.5); MEAN CORPUSCULAR VOLUME 98.4 fl (80.0-96.0); MONO # 0.7 10^3/uL (0.0-0.8); MONO % 13.4 % (2.0-8.0); NEUTROPHILS # 2.7 10^3/uL (1.5-8.5); NEUTROPHILS % 51.3 % (36.0-66.0); PLATELET COUNT, AUTOMATED 305 10^3/uL (150-450); RED BLOOD COUNT 4.27 10^6/uL (4.30-6.10); WHITE BLOOD COUNT 5.3 10^3/uL (4.0-10.0)
[2023-05-27 02:39] LABS: HEMOGLOBIN A1c 5.1 % (4.0-6.0)
[2023-05-27 04:02] LABS: ALBUMIN 3.8 G/DL (3.2-5.2); ALKALINE PHOSPHATASE 48 U/L (46-116); ALT/SGPT 17 U/L (7.0-40); AST/SGOT 17 U/L (<34); BILIRUBIN,TOTAL 0.6 MG/DL (0.3-1.2); BLOOD UREA NITROGEN 17 MG/DL (9-23); CALCIUM LEVEL 8.9 MG/DL (8.3-10.6); CARBON DIOXIDE LEVEL 25 MMOL/L (20-31); CHLORIDE LEVEL 105 MMOL/L (98-107); CHOLESTEROL LEVEL 205 MG/DL (<200); CHOLESTEROL RISK RATIO 3.66 (<5); CREATININE FOR GFR 0.96 MG/DL (0.70-1.30); GLOMERULAR FILTRATION RATE > 60.0 (>42); GLUCOSE, FASTING 103 MG/DL (74-106); LDL CHOLESTEROL 124.6 MG/DL (<100); POTASSIUM SERUM 4.5 MMOL/L (3.5-5.1); SODIUM LEVEL 138 MMOL/L (136-145); TOTAL PROTEIN 6.3 G/DL (5.7-8.2); TRIGLYCERIDES LEVEL 122 MG/DL (<150)
== END ==
LOC: M SFHCCAPE 07:39
PROVIDERS: ATTEND Physician Assistant Medical
DX: I10 Essential (primary) hypertension (principal); Z12.5 Encounter for screening for malignant neoplasm of prostate; E78.5 Hyperlipidemia, unspecified; Z13.1 Encounter for screening for diabetes mellitus
CPT/HCPCS: 80053; 80061; 83036; 85025; G0103

== ENCOUNTER → 2023-12-11 | Outpatient (CLI) | payer MEDICARE | LOC: M WUC 12:45 | PROVIDERS: ATTEND Physician Assistant Medical | DX: M25.512 Pain in left shoulder (principal) ==

== ENCOUNTER → 2024-01-15 | Outpatient (CLI) | payer MEDICARE | LOC: M PLARAD 10:52 | PROVIDERS: ATTEND Physician Assistant | DX: M43.12 Spondylolisthesis, cervical region (principal) ==

== ENCOUNTER → 2024-06-02 | Outpatient (REF) | payer MEDICARE ==
[2024-06-02 18:37] LABS: BASO # 0.1 10^3/uL (0.0-0.2); BASO % 1.2 % (0.0-1.0); EOS # 0.3 10^3/uL (0.0-0.5); EOS % 5.2 % (0.0-3.0); HEMATOCRIT 43.1 % (42.0-52.0); LYMPH # 1.3 10^3/uL (1.5-5.0); LYMPH % 25.7 % (24.0-44.0); MEAN CORPUSCULAR HGB CONC 32.5 g/dl (32.0-36.5); MEAN CORPUSCULAR VOLUME 98.6 fl (80.0-96.0); MONO # 0.7 10^3/uL (0.0-0.8); MONO % 13.5 % (2.0-8.0); NEUTROPHILS # 2.8 10^3/uL (1.5-8.5); PLATELET COUNT, AUTOMATED 268 10^3/uL (150-450); RED BLOOD COUNT 4.37 10^6/uL (4.30-6.10); WHITE BLOOD COUNT 5.2 10^3/uL (4.0-10.0)
[2024-06-02 18:53] LABS: ALBUMIN 3.8 G/DL (3.2-5.2); ALKALINE PHOSPHATASE 54 U/L (40-129); ALT/SGPT 18 U/L (7.0-40); AST/SGOT 15 U/L (<34); BILIRUBIN,TOTAL 0.7 MG/DL (0.3-1.2); BLOOD UREA NITROGEN 21 MG/DL (9-23); CALCIUM LEVEL 9.1 MG/DL (8.3-10.6); CARBON DIOXIDE LEVEL 24 MMOL/L (20-31); CHLORIDE LEVEL 109 MMOL/L (98-107); CHOLESTEROL LEVEL 188 MG/DL (<200); CHOLESTEROL RISK RATIO 4.07 (<5); GLOMERULAR FILTRATION RATE > 60.0 (>42); GLUCOSE, FASTING 97 MG/DL (74-106); HDL CHOLESTEROL 46.1 MG/DL (>40); LDL CHOLESTEROL 119.9 MG/DL (<100); NON-HDL-C 141.9 MG/DL; POTASSIUM SERUM 4.6 MMOL/L (3.5-5.1); SODIUM LEVEL 137 MMOL/L (136-145); TOTAL PROTEIN 6.5 G/DL (5.7-8.2); TRIGLYCERIDES LEVEL 110 MG/DL (<150)
[2024-06-02 18:54] LABS: PSA SCREENING 0.22 NG/ML (< 4.00)
[2024-06-02 18:56] LABS: HEMOGLOBIN A1c 5.2 % (4.0-6.0)
[2024-06-02 18:58] LABS: THYROID STIMULATING HORMONE 2.351 uIU/ML (0.55-4.78)
== END ==
LOC: M SFHCCAPE 07:20
PROVIDERS: ATTEND Physician Assistant Medical
DX: I10 Essential (primary) hypertension (principal); Z13.1 Encounter for screening for diabetes mellitus; K21.9 Gastro-esophageal reflux disease without esophagitis; Z12.5 Encounter for screening for malignant neoplasm of prostate; E78.00 Pure hypercholesterolemia, unspecified
CPT/HCPCS: 80053; 80061; 83036; 84443; 85025; G0103

== ENCOUNTER → 2025-05-30 | Outpatient (REF) | payer MEDICARE ==
[2025-05-30 18:25] LABS: ALT/SGPT 20 U/L (7.0-40); AST/SGOT 19 U/L (<34); CALCIUM LEVEL 8.9 MG/DL (8.3-10.6); CARBON DIOXIDE LEVEL 26 MMOL/L (20-31); CHLORIDE LEVEL 108 MMOL/L (98-107); CHOLESTEROL LEVEL 219 MG/DL (<200); CHOLESTEROL RISK RATIO 4.29 (<5); CREATININE FOR GFR 0.84 MG/DL (0.70-1.30); GLOMERULAR FILTRATION RATE > 90.0 (>42); LDL CHOLESTEROL 143.0 MG/DL (<100); NON-HDL-C 168.0 MG/DL; POTASSIUM SERUM 4.4 MMOL/L (3.5-5.1); PSA SCREENING 0.29 NG/ML (< 4.00); SODIUM LEVEL 143 MMOL/L (136-145); TRIGLYCERIDES LEVEL 125 MG/DL (<150)
[2025-05-30 18:28] LABS: BASO # 0.1 10^3/uL (0.0-0.2); BASO % 1.3 % (0.0-1.0); EOS # 0.2 10^3/uL (0.0-0.5); EOS % 4.2 % (0.0-3.0); LYMPH # 1.5 10^3/uL (1.5-5.0); LYMPH % 27.5 % (24.0-44.0); MONO # 0.7 10^3/uL (0.0-0.8); MONO % 12.1 % (2.0-8.0); NEUTROPHILS # 3.0 10^3/uL (1.5-8.5); NEUTROPHILS % 54.7 % (36.0-66.0); PLATELET COUNT, AUTOMATED 271 10^3/uL (150-450)
== END ==
LOC: M SFHCCAPE 07:27
PROVIDERS: ATTEND Physician Assistant Medical
DX: Z00.00 Encounter for general adult medical examination without abnormal findings (principal); K21.9 Gastro-esophageal reflux disease without esophagitis; Z78.9 Other specified health status; I10 Essential (primary) hypertension; E78.00 Pure hypercholesterolemia, unspecified; Z12.5 Encounter for screening for malignant neoplasm of prostate
CPT/HCPCS: 80053; 80061; 85025; G0103